=== PATIENT | male | born 1965 | race Caucasian/White ===

== ENCOUNTER → 2016-06-14 | Outpatient (CLI) | payer SELFPAY ==
--- NOTE | 2016-06-15 09:06 | RAD ---
EXAM DESCRIPTION: Right foot series. CLINICAL HISTORY: Right foot pain. COMPARISON: None. TECHNIQUE: Three views were submitted for evaluation. FINDINGS: No fracture, dislocation, or suspicious radiopaque foreign body is seen. Soft tissues are unremarkable. IMPRESSION: Plantar spur noted. The remaining study is unremarkable. Electronically signed by: Lefty Bonilla MD 06/15/2016 09:04
== END | disposition home or self-care (01) ==
LOC: RAD 10:27
PROVIDERS: ATTEND Nurse Practitioner Family
DX: M79.671 Pain in right foot (principal)

== ENCOUNTER → 2018-11-06 | Outpatient (CLI) | payer OTHER ==
--- NOTE | 2018-11-06 14:18 | RAD ---
Findings: Number of images: Three Location: Right hand No acute fracture or dislocation. No focal soft tissue swelling. Joint spaces are maintained. Tiny first CMC osteophytes. High density focus overlies the right hand second digit proximal phalanx (distally), which may reflect a foreign body or calcification. IMPRESSION: No evidence of acute process in the right hand. Electronically signed by: Anatoliy Noyola MD 11/06/2018 2:16 PM CDT
== END ==
LOC: LAB.O 11:26
PROVIDERS: ATTEND Nurse Practitioner Family
DX: M79.641 Pain in right hand (principal)

== ENCOUNTER → 2019-01-19 | Outpatient (CLI) | payer OTHER ==
--- NOTE | 2019-01-21 12:12 | US ---
EXAM DESCRIPTION: Soft Tissue,Extremity: ULTRASOUND. CLINICAL HISTORY: 53 years Male ACUTE EMBOLISM AND THROMBOSIS OF SUPERFICIAL VEINS OF RIGHT UPPER EXTREMITY. Pain right forearm and right wrist. COMPARISON: None Available. TECHNIQUE: Transcutaneous scanning: Foley-scale and Doppler modes. FINDINGS: No thrombosis seen in the superficial veins of the right forearm and right wrist at the region of pain. Free fluid measuring 1.8 x 1.9 x 0.8 cm is visualized abutting the radius or ulna. No dominant soft tissue mass. No abnormal calcifications. IMPRESSION: No thrombosis in the superficial veins of the right forearm and right wrist. Fluid collection. Electronically signed by: Nixon Ramos MD 01/21/2019 12:11 PM CDT
== END ==
LOC: US 09:32
PROVIDERS: ATTEND Nurse Practitioner Family
DX: I82.611 Acute embolism and thrombosis of superficial veins of right upper extremity (principal)

== ENCOUNTER → 2019-02-21 | Outpatient (CLI) | payer OTHER ==
--- NOTE | 2019-02-21 15:30 | MRI ---
EXAM DESCRIPTION: MRI right hand CLINICAL HISTORY: Right hand and wrist pain and swelling for 3 to 4 months. Bite lesion around the elbow before the pain began. COMPARISON: None. TECHNIQUE: Multiplanar, multisequence MR images of the right hand and wrist FINDINGS: Large effusion distal radial ulnar joint with extensive surrounding soft tissue edema and osseous edema throughout the distal ulna and in the radius. Joint effusions of the wrist, radiocarpal midcarpal and carpometacarpal. Carpometacarpal joint involvement primarily middle and ring finger. Large distal radioulnar joint effusion with complex synovitis and septations and extensive surrounding soft tissue edema and swelling. Dorsal subluxation of the ulna relative to the radial fossa Joint space narrowing from diffuse chondral loss. Multifocal osseous edema mostly along the margins of the joint line and at ligament/capsular attachment. Questionable erosions over small region of the distal volar radius lip and the volar scaphoid. Short segment extensor carpi ulnaris tenosynovitis with small tendon sheath effusion at the level of the distal ulna and wrist. No other tenosynovitis.. No focal muscle abnormality IMPRESSION: MR appearance most compatible with septic arthritis of the distal radial ulnar joint, and the wrist involving the radiocarpal, midcarpal and carpometacarpal joints Large distal radioulnar joint effusion with septations and complex synovitis. Extensive surrounding soft tissue edema and swelling Short segment extensor carpi ulnaris tenosynovitis Findings discussed with Dr. Mcbride at 3:20 PM Electronically signed by: Edmundo Villar MD 02/21/2019 3:28 PM CDT
== END ==
LOC: MRI 13:16
PROVIDERS: ATTEND Nurse Practitioner Family
DX: M25.831 Other specified joint disorders, right wrist (principal); M25.431 Effusion, right wrist; R60.0 Localized edema; M65.831 Other synovitis and tenosynovitis, right forearm

== ENCOUNTER → 2019-04-06 | Outpatient (CLI) | payer OTHER ==
--- NOTE | 2019-04-06 18:33 | RAD ---
XR WRIST 3 OR MORE VIEWS HISTORY: 53 years Male PAIN IN RIGHT WRIST COMPARISON: None. TECHNIQUE: Frontal, lateral and oblique views of the right wrist. FINDINGS: No acute fracture or dislocation observed. Mild joint space narrowing and osteophytosis at the first carpometacarpal joint and interphalangeal joint of the included thumb. Mild osteophytosis is also present at the first, third, and fourth metacarpophalangeal joints. Remaining joint spaces appear relatively preserved. Scapholunate interval within normal limits. No diagnostic soft tissue abnormality. IMPRESSION: No acute osseous abnormality detected in the right wrist. Scattered degenerative changes as discussed. Electronically signed by: Aleksey Carl MD 04/06/2019 6:31 PM [facility]
== END ==
LOC: LAB.O 14:26
PROVIDERS: ATTEND Nurse Practitioner Family
DX: M19.031 Primary osteoarthritis, right wrist (principal); E78.1 Pure hyperglyceridemia